=== PATIENT | female | born 1935 | race Caucasian/White ===

== ENCOUNTER 2016-09-13 06:46 | Observation (INO) | payer OTHER ==
--- NOTE | ~2016-09-13 | DS ---
Discharge Summary [address] [place]. [address] NAME: GUILLERMO OLIVAS : 37 STATUS : DIS Mila PAT#: [id number] AGE: 81 ADM/REG DATE : 09/13/16 MR#: [id number] REPORT SERV DATE: 09/15/16 DICTATED BY: JOSE MARIA WOOTEN DATE: 09/14/16 REPORT STATUS : Draft TRANSCRIBED BY: MODL DATE: 09/14/16 ADMISSION DATE: 09/13/2016 DISCHARGE DATE: 09/14/2016 DISCHARGE DIAGNOSES: 1. Clinical dehydration and generalized weakness. 2. Nausea and vomiting as well as episodes of diarrhea prior to admission, symptoms controlled. 3. Generalized weakness, unable to walk well in the ER, but much improved with IV hydration. 4. Falls at home. 5. Ecchymoses secondary to falls. 6. Irritable bowel syndrome. 7. Headache. CONSULTANTS: None. PROCEDURES: None. HOSPITAL COURSE: This is an 81-year-old lady who was admitted to the hospital after she was found to be quite weak down in the ER. The patient had initially presented to the ER with complaints of nausea and vomiting as well as some diarrhea. For details, please refer to excellent H and P dictated by Dr. Mccarthy. In summary, by the time the patient had come to the ER, the patient's symptoms of nausea, vomiting, and diarrhea has mostly subsided. The patient was clinically dehydrated and she was unable to walk well down in the ER and thus Internal Medicine consultation was requested for admission of the patient for overnight observation. The patient was admitted and was given mainly supportive care with IV fluid hydration. By the next morning, the patient felt much better and she was actually able to get up and ambulate well with minimal assist. The patient is thus being discharged home with close outpatient followup plans. DISPOSITION: Home. DISCHARGE MEDICATIONS: No changes. FOLLOWUP: Please follow up with PCP in the next one to two weeks. A total of 25 minutes spent in coordinating this patient's discharge today. DICTATED BY: Jose Maria Wooten MD Laura/TRACI Discharge Summary [address] [place]. [address] NAME: GUILLERMO OLIVAS : 37 STATUS : DIS Mila PAT#: [id number] AGE: 81 ADM/REG DATE : 09/13/16 MR#: [id number] REPORT SERV DATE: 09/15/16 DICTATED BY: JOSE MARIA WOOTEN DATE: 09/14/16 REPORT STATUS : Draft TRANSCRIBED BY: TRACI DATE: 09/14/16 Jose Maria Wooten MD / [id number] CC: MD Valentin Orr M.D.
--- NOTE | ~2016-09-13 | HP ---
History And Physical [address] [id number] [facility] [place]. [address] NAME: GUILLERMO OLIVAS : 37 STATUS : ADM Mila PAT#: [id number] AGE: 81 ADM/REG DATE : 09/13/16 MR#: [id number] REPORT SERV DATE: 09/13/16 DICTATED BY: DAIJA GARCES DATE: 09/13/16 REPORT STATUS : Draft TRANSCRIBED BY: MODBrittanie DATE: 09/13/16 DATE OF ADMISSION: 09/13/2016 REASON FOR ADMISSION: Nausea, vomiting, weakness, falling, and altered mental status. HISTORY: This is a very vague history presented to me by this 81-year-old white female, patient of Dr. Valentin Maguire, who says that last she had a fall that she does not know what it was caused by and bruised her left elbow, left knee, and her left side. She was able to get up and move about, but had some pain in her left chest, but it did not bother her. [facility] went to [facility] on [facility]. Last night, she began with nausea and vomiting. She has some diarrhea. She does have diarrhea off and on all the time and has seen Dr. Poe for this in the past, but has not given her a specific diagnosis. She is weak and nauseated now having the falling and having trouble sitting up. She has two sons at home, one schizophrenic, one with another mental disorder that she is taking care of. She has been for about the last four years. She lives in [place] in [place]. She was seen in the emergency room by the nurse practitioner on shift nurse manager and was passed to Dr. Barrios this morning. Dr. Barrios saw the normal laboratory work, offered to discharge home; however, she is too weak to be discharged and still nauseated. Apparently, no antiemetics have been given to the patient. She did get 500 mL bolus of fluid in the emergency room. PAST MEDICAL HISTORY: She has longstanding psychiatric history and is followed by Dr. Lala. She is on Ativan and Paxil for depression from him. She was in the hospital at [facility] in 2000. She continues to follow with Dr. Lala. She has seen Dr. Poe, that has been about a year ago. EGD was done about two years ago. She has remote cholecystectomy, appendectomy. HOME MEDICATIONS: Ativan 2 mg at bedtime, Tylenol and hydrocodone from Dr. Maguire for fibromyalgia pain, Lyrica 175 mg p.o. b.i.d. Others are being identified from [facility] in [place]. FAMILY HISTORY: Strokes run in the family, mother, aunts. She does not remember what her father from, and other diseases that may run in the family other than the psychiatric illnesses. SOCIAL HISTORY: She has been for about four years. Does not take any alcohol or tobacco. Attend [employer] in [place]. She lives in [place] and her sons are concerned they cannot take care of her because of her sickness and disability. REVIEW OF SYSTEMS: She has had intermittent nausea and vomiting for many years, not any particular medication for this. She has had intermittent diarrhea for many years as well. No blood in the stool. No blood in the emesis. No fever, chills, night sweats, melena, hematemesis. She has had a left lateral chest pain, difficult to localize, no worse with deep breathing. No cough. No melena or hematemesis. Vomitus is mostly mucoid. She has had no fits, seizures, or convulsions. She has a history of fibromyalgia. History And Physical [address] [address] NAME: GUILLERMO OLIVAS : 37 STATUS : ADM Mila PAT#: [id number] AGE: 81 ADM/REG DATE : 09/13/16 MR#: [id number] REPORT SERV DATE: 09/13/16 DICTATED BY: DAIJA GARCES DATE: 09/13/16 REPORT STATUS : Draft TRANSCRIBED BY: MODL DATE: 09/13/16 The remainder of the review of systems is negative. PHYSICAL EXAMINATION: VITAL SIGNS: Her blood pressure is 146/80 with a heart rate of 90, respiratory rate 18, afebrile. HEENT: EOMI. Sclerae clear. Conjunctivae pink. Tongue is dry. Teeth are dry. Mucus is thickened in her mouth. NECK: No bruit without no JVD. CHEST: Clear to A and P. Chest wall tenderness over the left side of the chest. She denies dyspnea. LUNGS: Her lungs are clear. There is no wheezing or rhonchi. HEART: Regular S1, S2 without murmur, gallop, or click. Left upper chest wall, there is a pacemaker palpated deep under the upper breast. ABDOMEN: Grossly obese, protuberant, nontender. No landmarks. No organomegaly. Bowel sounds are positive. RECTAL: Not done. EXTREMITIES: Have no edema. Distal pulses are intact, dorsalis pedis and posterior tibial. SKIN: There is a large yellow ecchymosis in resolution over the left knee. No bruising on the left chest nor forehead or head. Her head appears atraumatic. LYMPHATICS: There is no adenopathy palpable. NEUROLOGIC: Her slot manager is equal and symmetric bilaterally. Coordination intact. She has no tremor. She is highly demonstrative of pain in the left chest difficult to move, difficult to sit up. ASSESSMENT: 1. Clinical dehydration based on the patient's dry tongue and mouth. There were the laboratory evidence that does not corroborate. Her urine specific gravity is 1.018. 2. Nausea and vomiting. She has this intermittently in the past and seen Dr. Poe previously for this. She has had a cholecystectomy. Her procalcitonin less than 0.05. I do not feel there is an infectious cause of this. 3. Diarrhea likely physiologic. Her last stool was last Monday and when she had the diarrhea. 4. Weakness, generalized, unable to walk well now. 5. Falling with large bruising on her left knee and the left elbow. 6. Ecchymosis secondary to fall. 7. I am not sure this is not a syncopal episode, though she has a pacemaker and it occurred last when she fell. 8. Right mastectomy from breast cancer, previously followed by Dr. Drew Matta, and now Dr. Johann Whiting. 9. Headache. 10.Irritable bowel syndrome. 11.History of cholecystectomy. 12.Vague history. 13.EGD by Dr. Poe two years ago. 14.History of breast cancer, gallbladder and appendectomy surgical interventions. 15.Confusion since her fall according to her son, who appears to have some mental illness History And Physical [address] [place]. [address] NAME: GUILLERMO OLIVAS : 37 STATUS : ADM Mila PAT#: [id number] AGE: 81 ADM/REG DATE : 09/13/16 MR#: [id number] REPORT SERV DATE: 09/13/16 DICTATED BY: DAIJA GARCES DATE: 09/13/16 REPORT STATUS : Draft TRANSCRIBED BY: TRACI DATE: 09/13/16 himself. 16.Permanent pacemaker followed by Dr. Dagoberto Mustafa with possible history of myocardial infarction, but review of the chart shows the patient has not been here since 2011. 17.History of 14 or 15 positive lymph nodes with metastasis from the breast cancer in the past. 18.Fibromyalgia, on Lyrica. 19.Anxiety, on Ativan per Dr. Lala. 20.History of depression, on Paxil. 21.History of psychiatric hospitalization at [facility]. 22.Noncompliance with medication, apparently has been out of heart medication, whatever that is according to her son we are trying to identify that now. 23.Dementia with slow recollection history of insomnia. PLAN: IV fluid, D5 half-normal saline, and observation. Treat symptoms. Check amylase and lipase. The left-sided chest pain appears to be posttraumatic. If she develops dyspnea or tachycardia, we may scan the chest for evidence of pulmonary embolism, though this is not prominent consideration at this point. She does have bruising and expect D-dimer test to be elevated. We will review for possible PE during observation. ADDENDUM: Home medications include the following: Bupropion 150 mg p.o. daily, I am going to hold that; Anaspaz 0.125 p.o. q.4 hours p.r.n. abdominal cramping; lorazepam 2 mg p.o. at bedtime; vitamins one a day; Paxil 40 mg p.o. at bedtime, Lyrica 150 mg p.o. b.i.d., I will go ahead and restart. She was on hydrocodone in the past. DB/TRACI Daija Garces M.D. / [id number] CC: Paulie Gallagher Jr, MD Stanley Ireland, M.D. Nan Perkins M.D. Derek W Holland, M.D.
[~2016-09-13 06:46] MED LIST: CO Q-10200 MG PO; FEMARA PO; LEVSINTAB PO; LOP25 PO; LORT7 PO; LYRICA150 MG PO; LYRICA75 PO; MULTIPLE VIT PO; NORCO1 TA2 PO; NORCO1 TAB PO; OS500+D PO; PAXIL30 MG PO; PAXIL40 MG PO; PR25 PO; PROAMAT5 PO; PROBIOTICS PO; QUESTRAN4 GM PO; TRAZODONE150 MG PO; VITAMIN B-121000 MC1 SL
[2016-09-13 07:20] LABS: BASOPHILS 0.4 %; BASOPHILS ABSOLUTE 0.02 10/3/uL (0.0-0.16); EOSINOPHILS 0.7 %; EOSINOPHILS ABSOLUTE 0.04 10/3/uL (0.0-0.53); ER CBC TAT 0 Hrs 07 Mins; HEMATOCRIT 43.3 % (36.0-48.0); HEMOGLOBIN 14.5 g/dL (12.0-16.0); IMMATURE GRANULOCYTES 0.2 %; IMMATURE GRANULOCYTES ABSOLUTE 0.01 10/3/uL (0.0-0.11); LYMPHOCYTES 19.5 %; MANUAL DIFF NO %; MEAN CORPUS HGB CONC 33.5 g/dL (32.0-36.0); MEAN CORPUSCULAR HEMOGLOB 30.2 pg (26.0-34.0); MEAN CORPUSCULAR VOLUME 90.2 fL (80-100); MEAN PLATELET VOLUME 9.7 fL (9.2-13.0); MONOCYTES 4.8 %; MONOCYTES ABSOLUTE 0.27 10/3/uL (0.21-1.20); NEUTROPHILS 74.4 %; NEUTROPHILS ABSOLUTE 4.21 10/3/uL (2.02-8.40); PLATELET COUNT 194 10/3/uL (150-400); RBC DISTRIBUTION WIDTH 13.7 % (12.0-16.0); WHITE BLOOD CELLS 5.7 10/3/uL (4.5-10.5)
[2016-09-13 07:33] LABS: PROTIME (NOT ORD) 12.8 SEC (12.0-14.5)
[2016-09-13 07:34] LABS: PARTIAL THROMBO TIME 28.5 SEC (22.5-37.2)
[2016-09-13 07:36] LABS: A/G RATIO 0.9 (0.7-1.9); ALBUMIN 3.4 G/DL (3.5-5.0); BUN (BLOOD UREA NITROGEN) 14 MG/DL (6-23); CALCIUM, SERUM 8.7 MG/DL (8.5-10.4); CHLORIDE, SERUM 106 MMOL/L (96-112); CO2 (CARBON DIOXIDE) 29 MMOL/L (24-34); CPK 43 U/L (0-200); CREATININE 0.77 MG/DL (0.55-1.02); GFR AFRICAN AMERICAN 85 ML/MIN (>=60); GFR NON AFRICAN AMERICAN 73 ML/MIN (>=60); GLOBULIN 3.9 G/DL (2.5-4.1); GLUCOSE, SERUM 108 MG/DL (60-99); POTASSIUM, SERUM 3.7 MMOL/L (3.5-5.3); SGOT(AST) 26 U/L (5-40); SGPT(ALT) 29 U/L (5-65); SODIUM, SERUM 141 MMOL/L (135-148); TOTAL PROTEIN 7.3 G/DL (6.0-8.5)
[2016-09-13 07:37] LABS: ALKALINE PHOSPHATASE 106 U/L (45-117); LACTATE 1.4 MMOL/L (0.3-2.4); TOTAL BILIRUBIN 1.1 MG/DL (0-1.2)
[2016-09-13 07:59] LABS: PROCALCITONIN <0.05 ng/mL (<0.5)
[2016-09-13 08:37] LABS: TROPONIN I <0.02 NG/ML (<0.05)
[2016-09-13 09:29] LABS: ASCORBIC ACID (UR NOT ORDER) NEG (NEG); BILIRUBIN, URINE NEGATIVE (NEG); ER URINALYSIS TAT 0 Hrs 14 Mins; KETONE, URINE 80 MG/DL (NEG); LEUKOCYTE ESTERASE(NOT OR NEG (NEG); NITRITE (URINE) NEG (NEG); WBC (NOT ORDERED) (RFLEX) 6 (0-5)
[2016-09-13] MEDS ORDERED: LYRICA150 MG PO (11:18)
[2016-09-13] MEDS ORDERED: ATV1 PO (11:18)
[2016-09-13] MEDS ORDERED: PAXIL40 MG PO (11:18)
[2016-09-13] MEDS ORDERED: CENTRUM PO (11:19)
[2016-09-13] MEDS ORDERED: ANASPAZ0.125 MG PO (11:19)
[2016-09-13] MEDS ORDERED: CALCIUM + D PO (11:19)
[2016-09-13] MEDS ORDERED: WELLSR150 PO (11:21)
[2016-09-13 14:34] LABS: ULTRASENSITIVE TSH 0.605 MCIU/ML (0.358-3.740)
[2016-10-05] MEDS ORDERED: ZOFRAN4 PO (16:02)
[2016-10-05] MEDS ORDERED: PR25 PO (16:03)
[2016-10-05] MEDS ORDERED: NORCO1 TAB PO (16:04)
[2016-10-05] MEDS ORDERED: PRILOSEC40 MG PO (16:05)
[2016-10-05] MEDS ORDERED: MACROBID PO (16:06)
== END 2016-09-14 12:32 | disposition home or self-care (01) ==
LOC: ER 06:46 → 4SO 12:10
PROVIDERS: Specialist
DX: R53.1 Weakness (principal); E86.0 Dehydration; R11.2 Nausea with vomiting, unspecified; R19.7 Diarrhea, unspecified; R58 Hemorrhage, not elsewhere classified; R51 Headache; K58.9 Irritable bowel syndrome, unspecified; Z90.49 Acquired absence of other specified parts of digestive tract; Z98.890 Other specified postprocedural states; M79.7 Fibromyalgia; Z95.0 Presence of cardiac pacemaker; Z90.11 Acquired absence of right breast and nipple; F41.9 Anxiety disorder, unspecified; Z79.899 Other long term (current) drug therapy; Z85.3 Personal history of malignant neoplasm of breast; Z79.891 Long term (current) use of opiate analgesic; Z88.2 Allergy status to sulfonamides
CPT/HCPCS: 70450; 71010; 74176; 80053; 81001; 82150; 82550; 83605; 83690; 83735; 84145; 84443; 84484; 85025; 85610; 85730; 87040; 93005; 96372; 96375; 99285; A9270-GY; G0378; J1170; J2550